=== PATIENT | male | born 1930 | race African-American/Black ===

== ENCOUNTER 2018-05-04 15:11 | Emergency (ER) | payer MEDICARE, BC ==
[~2018-05-04] VITALS: Ht 182.9 cm; Wt 150.0 kg
[2018-05-04 15:13] VITALS: BP 0/0
[2018-05-04] MEDS ORDERED: SODIUM BICARBONATE 8.4% MEQ/ML 50ML VIAL IV ONE (15:23)
[2018-05-04] MEDS ORDERED: AMIODARONE HCL 50MG/ML 3ML VIAL IV ONE (15:23)
[2018-05-04] MEDS ORDERED: EPINEPHRINE 0.1MG/ML (1:10,000) 10ML SYR ONE (15:23)
== END 2018-05-04 17:48 | disposition expired ==
LOC: ER 15:11
DX: I46.9 Cardiac arrest, cause unspecified (principal); R57.9 Shock, unspecified
CPT/HCPCS: 31500; 92950; 99285; J0282; J3490